=== PATIENT | male | born 1990 | race Caucasian/White ===

== ENCOUNTER 2018-02-16 19:19 | Emergency (ER) | payer OTHER, BC ==
[2018-02-16 19:19] VITALS: BMI 30.7
[2018-02-16 19:27] VITALS: RESP 16
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
[2018-02-16 20:31] LABS: BASO % 0.6 % (0.0-2.0); EOS # 0.1 K/uL (0.0-0.7); EOS % 1.7 % (0.0-4.0); HEMOGLOBIN 14.3 g/dL (12.0-18.0); LYMPH # 2.5 K/uL (1.0-4.3); LYMPH % 31.5 % (20.0-40.0); MEAN CORPUSCULAR HEMOGLOBIN 32.7 pg (27.0-31.0); MEAN CORPUSCULAR HGB CONC 34.1 g/dL (33.0-37.0); MEAN PLATELET VOLUME 7.6 fL (7.2-11.7); MONO # 0.7 K/uL (0.0-0.8); NEUT # 4.5 K/uL (1.8-7.0); NEUT % 57.2 % (50.0-75.0); NRBC % 0.1 % (0.0-2.0); RBC 4.36 Mil/uL (4.40-5.90); RED CELL DISTRIBUTION WIDTH 12.9 % (11.5-14.5); WHITE BLOOD COUNT 7.8 K/uL (4.8-10.8)
[2018-02-16 20:48] LABS: ALB/GLOB RATIO 1.7 (1.0-2.1); ALBUMIN 4.3 g/dL (3.5-5.0); ALT/SGPT 38 U/L (21-72); AST/SGOT 36 U/L (17-59); BLOOD UREA NITROGEN 20 mg/dL (9-20); CALCIUM 8.9 mg/dl (8.6-10.4); GFR AFRICAN-AMERICAN > 60; GFR NON-AFRICAN AMERICAN > 60
[2018-02-16] MEDS ORDERED: Iodixanol 320 MG/ML 100 ML BOTTLE IV ONE (20:51)
[2018-02-16 21:31] VITALS: BP 106/48; PULSE 86; TEMP 98.1
[2018-02-17 01:44] VITALS: O2SAT 99
--- NOTE | 2018-02-17 09:17 | CT ---
PROCEDURE: CT HEAD WITHOUT CONTRAST. HISTORY: Trauma, dizziness COMPARISON: None available. TECHNIQUE: Axial computed tomography images were obtained through the head/brain without intravenous contrast. Radiation dose: Total exam DLP = 888.30 mGy-cm. This CT exam was performed using one or more of the following dose reduction techniques: Automated exposure control, adjustment of the mA and/or kV according to patient size, and/or use of iterative reconstruction technique. FINDINGS: HEMORRHAGE: No intracranial hemorrhage. BRAIN: Allen-white matter differentiation is preserved. There is no mass, mass effect or abnormal extra-axial fluid collection. There is no territorial infarction. VENTRICLES: The ventricles are normal in size, shape and configuration. CALVARIUM: There is no calvarial fracture or extracranial soft tissue swelling. PARANASAL SINUSES: Predominantly clear. MASTOID AIR CELLS: Predominantly clear. OTHER FINDINGS: None. IMPRESSION: No acute intracranial abnormality. A preliminary report was provided by [employer] services.
== END 2018-02-16 23:01 | disposition left against medical advice (07) ==
LOC: C.ER 19:19
DX: S39.012A Strain of muscle, fascia and tendon of lower back, initial encounter (principal); S06.0X9A Concussion with loss of consciousness of unspecified duration, initial encounter; V21 Motorcycle rider injured in collision with pedal cycle; Y92.410 Unspecified street and highway as the place of occurrence of the external cause
CPT/HCPCS: 70450; 80053; 85025; 96374; 99285; J3010; Q9967

== ENCOUNTER 2018-12-23 15:12 | Emergency (ER) | payer BC, OTHER ==
[2018-12-23 15:12] VITALS: BMI 30.7
[2018-12-23 15:23] VITALS: BP 134/94; PULSE 72; RESP 16; TEMP 98; O2SAT 97
--- NOTE | 2018-12-23 15:28 | C.PDOC ---
History Of Present Illness 28 y/o male presents to the ER complaining of pain in left lower molar area. Patient states that he lost his filling. Patient has history of multiple dental evaluations at [facility] [place].Denies having fever and chills. Time Seen by Provider: 12/23/18 15:23 Chief Complaint (Nursing): Dental Pain History Per: Patient History/Exam Limitations: no limitations Onset/Duration Of Symptoms: Days Current Symptoms Are (Timing): Still Present Severity: Moderate Past Medical History Reviewed: Historical Data, Nursing Documentation, Vital Signs Vital Signs: Last Vital Signs Temp 98 F 12/23/18 15:21 Pulse 72 12/23/18 15:21 Resp 16 12/23/18 15:21 BP 134/94 H 12/23/18 15:21 Pulse Ox 97 12/23/18 15:21 - Medical History PMH: Arthritis, Back Problems (herniated disks) Denies: Chronic Kidney Disease Surgical History: No Surg Hx - [facility] Procedures INJECT/INFUSE NEC (11/05/13) Family History: States: No Known Family Hx - Social History Hx Tobacco Use: Yes (former smoker) Hx Alcohol Use: No Hx Substance Use: No - Immunization History Hx Tetanus Toxoid Vaccination: Yes Hx Influenza Vaccination: Yes Hx Pneumococcal Vaccination: No Review Of Systems Except As Marked, All Systems Reviewed And Found Negative. Constitutional: Negative for: Fever, Chills ENT: Positive for: Mouth Pain Physical Exam - Physical Exam Appears: Non-toxic, No Acute Distress Skin: Normal Color, Warm, Dry Head: Atraumatic, Normacephalic Eye(s): bilateral: Normal Inspection Nose: Normal Oral Mucosa: Moist Teeth: Other (missing filling in left lower molar area, no surrounding erythema, no discharge, no foul smell) Neurological/Psych: Oriented x3, Normal Speech ED Course And Treatment O2 Sat by Pulse Oximetry: 97 (RA) Pulse Ox Interpretation: Normal Medical Decision Making Medical Decision Making: dentalgia, lost a filling, L lower molar area empiric pcn/NSAIDS, opt f/u. Disposition Doctor Will See Patient In The: Office Counseled Patient/Family Regarding: Studies Performed, Diagnosis - Disposition Referrals: [facility] [Outside] [facility] [Outside] [facility] [Outside] [facility] [Outside] Disposition: HOME/ ROUTINE Disposition Time: 15:28 Condition: GOOD Additional Instructions: Evangelista VK as directed for dental infections Motrin/Advil 400-600 mg every 6 hours as needed for dental pain [facility] for repairs within one week. Prescriptions: Penicillin VK [Penicillin VK Tab] 2 tab PO BID #28 tab Instructions: Dental Pain (DC) Forms: [facility] (Malagasy), Work Excuse - Clinical Impression Clinical Impression: Toothache - Scribe Statement The provider has reviewed the documentation as recorded by the Tyra Boone Provider Attestation: All medical record entries made by the Byronibkelton were at my direction and personally dictated by me. I have reviewed the chart and agree that the record accurately reflects my personal performance of the history, physical exam, medical decision making, and the department course for this patient. I have also personally directed, reviewed, and agree with the discharge instructions and disposition.
== END 2018-12-23 16:10 | disposition home or self-care (01) ==
LOC: C.ER 15:12
DX: K08.89 Other specified disorders of teeth and supporting structures (principal); Z87.891 Personal history of nicotine dependence